=== PATIENT | male | born 1980 | race Caucasian/White ===

== ENCOUNTER 2019-12-03 23:35 | Emergency (ER) | payer MEDICAID ==
[~2019-12-03] VITALS: Ht 152.4 cm; Wt 93.0 kg
[2019-12-03 23:42] VITALS: Ht 152.4 cm; Wt 93.0 kg
[2019-12-04 01:00] VITALS: BP 121/75
== END 2019-12-04 01:00 | disposition home or self-care (01) ==
LOC: ED 23:35
DX: M79.672 Pain in left foot (principal)